=== PATIENT | male | born 1970 | race Caucasian/White ===

== ENCOUNTER 2022-07-20 19:12 | Emergency (ER) | payer OTHER ==
[~2022-07-20] VITALS: Ht 177.8 cm; Wt 88.0 kg
[~2022-07-20 19:12] MED LIST: [UNRECOGNIZED DRUG - OTHER]
[2022-07-20 20:26] LABS: BASOPHILS # (AUTO) 0.1 (0.0-0.1); BASOPHILS % 0.8 % (0.0-1.0); EOSINOPHILS # (AUTO) 0.5 (0.0-0.4); EOSINOPHILS % 3.3 % (0.0-6.0); HEMATOCRIT 54.8 % (38.2-49.6); HEMOGLOBIN 17.2 g/dL (14.0-18.0); LYMPHOCYTES # (AUTO) 3.5 (1.0-3.2); LYMPHOCYTES % 25.1 % (18.0-39.1); MEAN CORPUSCULAR HEMOGLOBIN 31.2 pg (28-32); MEAN CORPUSCULAR HGB CONC 31.4 g/dL (31-35); MEAN CORPUSCULAR VOLUME 99.5 fL (81-99); MONOCYTES # (AUTO) 1.9 (0.2-0.8); MONOCYTES % 13.2 % (4.4-11.3); NEUTROPHILS # (AUTO) 8.1 (2.1-6.9); NEUTROPHILS % 57.2 % (38.7-80.0); PLATELET COUNT 309 x10e3/uL (140-360); RED BLOOD COUNT 5.51 x10e6/uL (4.3-5.7); RED CELL DISTRIBUTION WIDTH 12.9 % (11.7-14.4)
[2022-07-20 20:40] LABS: ALBUMIN 3.9 g/dL (3.5-5.0); ANION GAP 13.1 mmol/L (8-16); CALCIUM 10.5 mg/dL (8.4-10.2); CREATININE, SERUM 0.84 mg/dL (0.72-1.25); POTASSIUM 4.1 mmol/L (3.5-5.1)
[2022-07-20] MEDS ORDERED: CEPHALEXIN500 MG PO (20:46)
[2022-07-20] MEDS ORDERED: ULTRAM 50MG50 MG PO (20:46)
[2022-07-20] MEDS ORDERED: BACTRIM DS TAB1 EACH PO (20:46)
[2022-07-20 20:49] VITALS: BP 123/81
== END 2022-07-20 21:35 | disposition home or self-care (01) ==
LOC: ER 19:20
DX: L03.114 Cellulitis of left upper limb (principal)
CPT/HCPCS: 36415; 80053; 85025; 99283; J2543